=== PATIENT | female | born 2000 | race Two or more races ===

== ENCOUNTER 2021-02-14 23:28 | Emergency (ER) | payer OTHER ==
[~2021-02-14] VITALS: Ht 165.1 cm; Wt 74.1 kg
[2021-02-14 23:49] VITALS: BP 130/86
== END 2021-02-15 00:50 | disposition home or self-care (01) ==
LOC: EMS 23:29
DX: L25.9 Unspecified contact dermatitis, unspecified cause (principal)
CPT/HCPCS: 99283; Z7502